=== PATIENT | female | born 1955 | race Caucasian/White ===

== ENCOUNTER 2016-08-16 16:45 | Emergency (ER) | payer OTHER ==
[2016-08-16 16:51] VITALS: BP 142/70; BMI 20.7
--- NOTE | 2016-08-16 17:07 | DR.GENAD ---
HPI - PCP Primary Care Physician: ERICH BROWN - HPI Comment HPI Comment: HISTORY BELOW. - Complaint/Symptoms Chief Complaint Doctors Comments: CYST LOWER BACK NEAR LEFT LUMBER SPINE. WEARS BRACE FOR CHRONIC BACK PAIN. CYST INCREASE 3 FOLD AND IS PAINFULL. LOWER PART OF CYST IS RED. NO DRAINAGE. TAKES PERCOCET FOR CHRONIC BACK PAIN. NO FEVER. Chief Complaint:: PATIENT STATED SHE HAS A CYST ON HER LOWER BACK FOR SEVERAL YEARS, BUT SHE HAS TO WEAR A BACK BRACE AND THE LAST FEW DAYS IT HAS BECOME INFLAMED. Self Treatment fo Chief Complaint: PATIENT TAKES PERCOCET - Nurses notes reviewed Nurses Notes Review: Yes - Source History Provided: Patient - Mode of Arrival Mode of Arrival: Ambulatory - Timing Onset of Chief Complaint: 08/08/14 Came on: Suddenly - Duration Duration: Constant Duration: Days - Severity Severity: Moderate PMH - PMH Past Medical History: No Past Medical History Comment: CHRONIC BACK PAIN Past Surgical History: Yes Surgical History: Appendectomy, Hysterectomy, Ortho Surgery Past Surgical History Comment: 2 LOWER BACK SURGRIES - Family History History of Family Medical Conditions: No - Social History Does patient currently use any type of tobacco product: Yes Have you used tobacco products in the last 12 months: Yes Type of Tobacco Use: Cigarettes How many years tobacco product used: 45 Does any household member use tobacco: Yes Alcohol Use: None Do you use any recreational Drugs:: No Lives With: Family Lives Where: Home - infectious screening In the last 2 months have you had wt loss of >10#?: NO Have you had fever, night sweats or hemotysis?: No Have you traveled outside the country in the last 6 months?: No Isolation: Standard ROS - Review of Systems Constitutional: No Symptoms Reported Eyes: No Symptoms Reported ENTM: No Symptoms Reported Respiratoy: No Symptoms Reported Cardiovascular: No Symptoms Reported Gastrointestinal/Abdominal: No Symptoms Reported Genitourinary: No Symptoms Reported Neurological: No Symptoms Reported Musculoskeletal: Back Pain (LOWER BACK PAIN. CYST LT LOWER BACK.) Integumentary: Lesions (CYST LOWER SPINE, INFLAME) Hematologic/Lymphatic: No Symptoms Reported Endocrine: No Symptoms Reported All Other Systems: Reviewed and Negative PE - Vital Signs Vitals: Temperature 98.9 F Pulse Rate 70 Respiratory Rate 16 Blood Pressure 142/70 O2 Sat by Pulse Oximetry 100 - General Limitations: No Limitations General Appearance: Alert - Head Head Exam: Normal Inspection - Eyes Eye exam: Normal Appearance - ENT ENT Exam: Normal External Ear Exam External Ear Exam: Normal External Inspection TM/Canal Exam: Bilateral Normal Nose Exam: Normal Nose Exam Mouth Exam: Normal Inspection Throat Exam: Normal Inspection - Neck Neck Exam: Trachea Midline - Chest Chest Inspection: Symmetric Chest Wall Rise - Respiratory Respiratory Exam: Normal Lung Sounds Bilat Respiratory Exam: Bilateral Clear to Auscultation - Cardiovascular Cardiovascular Exam: Regular Rate, Normal Rhythm, Normal Heart Sounds - Abdominal Exam Abdominal Exam: Normal Bowel Sounds, Soft. negative: Tenderness - Extremities Extremities Exam: Normal Inspection - Back Back Exam: Paraspinal Tenderness (LOWER SPINE), Vertebral Tenderness (LUMBER SPINE) - Neurologic Neurological Exam: Alert, Oriented X3 - Psychiatric Psychiatric Exam: Normal Affect, Normal Mood - Skin Skin Exam: Normal Color MDM - Differential Diagnosis Differential Diagnosis: CYST LT LUMBER SPINE, CELLULITIS. CHRONIC BACK PAIN. Course - Treatment Treatment: SEE ORDERS - Education/Counseling Education/Counseling: Patient, Family, Education Educated On: Treatment, Diagnosis, Needs for Follow Up ROR - XRAY XRAY Interpreted by: Radiologist XRAY Findings: REPORT DISCUSS WITH PATIENT. - Diagnosis Discharge Problem: Inflamed sebaceous cyst Cellulitis Qualifiers: Site of cellulitis: trunk Site of cellulitis of trunk: back Qualified Code(s): L03.312 - Cellulitis of back [any part except buttock] - Discharge Plan Disposition: 01 HOME, SELF-CARE Condition: Stable Prescriptions: Clindamycin HCl 300 mg PO Q6H #40 cap - Follow ups/Referrals Follow ups/Referrals: ERICH BROWN [Primary Care Provider] - 08/17/16 - Instructions Instructions: Cellulitis Additional Instructions: RETURN TO ED IF WORSE. YOU ALSO WORSENING OF CHRONIC CYST LT LOWER BACK NEAR LUMBER SPINE.
[2016-08-16] MEDS ORDERED: DEMEROL INJ IM ONE (17:28)
[2016-08-16] MEDS ORDERED: PHENERGAN INJ 25 MG IM ONE (17:28)
[2016-08-16] MEDS ORDERED: PHENERGAN INJ 25 MG ONE (17:29)
[2016-08-16] MEDS ORDERED: DEMEROL INJ ONE (17:30)
--- NOTE | 2016-08-16 19:14 | CT ---
EXAM: CT LUMBAR SPINE WITHOUT CONTRAST INDICATION: Lower back cyst COMPARISION: No priors TECHNIQUE: Axial CT examination of the lumbar spine was performed without intravenous contrast. Coronal and sag ittal planes were reconstructed using the axial data. FINDINGS: Severe degenerative disc changes are present at L2-3. There is complete loss of disc space with subc hondral sclerosis, osteophyte formation, and subchondral cyst formation. The disk heights in the rem ainder the lumbar spine are relatively preserved. No acute fracture or subluxation identified. Poste rior osteophyte formation at L2-3 encroach on both neural foramen in the anterior aspect of the thec al sac. Broad-based disc osteophyte complex is present at this level. The central canal is patent in the remainder of the lumbar levels. In the subcutaneous soft tissues located to the left of midline at the level of L3-4 there is a cyst measuring 3 cm in diameter. Hounsfield units are 23 within the cysts consistent complex fluid. IMPRESSION: 1: Severe degenerative disc changes are present at L2-3 as described above. Also present this level is a broad-based disc osteophyte complex resulting in anterior thecal sac effacement and bilateral n eural foraminal stenosis. 2: There is a 3 cm subcutaneous cyst located slightly to the left of midline at the level of L3-4. Reported By:
[2016-08-16] MEDS ORDERED: CLEOCIN PO ONE (19:55)
[2016-08-16] MEDS ORDERED: CLEOCIN ONE (19:57)
== END 2016-08-16 20:04 | disposition home or self-care (01) ==
LOC: ER 16:54
DX: L03.312 Cellulitis of back [any part except buttock and flank] (principal); L72.3 Sebaceous cyst
CPT/HCPCS: 72131; 96372; 99283; J2175; J2550